=== PATIENT | male | born 1995 | race Asian ===

== ENCOUNTER 2018-03-28 08:39 | Emergency (ER) | payer OTHER ==
[~2018-03-28] VITALS: Ht 170.2 cm; Wt 58.2 kg
[2018-03-28] MEDS ORDERED: BACITRACIN 0.9 GM PACKET OINTMENT TP ONE (12:15)
[2018-03-28] MEDS ORDERED: LIDOCAINE/PF 1% 5 ML VIAL INJ ONE (12:15)
[2018-03-28] MEDS ORDERED: PERTUSS(ACELL),DIPH,TET VAC/PF 0.5 ML VIAL IM ONE (12:15)
[2018-03-28 13:43] VITALS: BP 127/72
== END 2018-03-28 13:44 | disposition home or self-care (01) ==
LOC: EMS 08:41
DX: S01.111A Laceration without foreign body of right eyelid and periocular area, initial encounter (principal); W22.8XXA Striking against or struck by other objects, initial encounter; Y93.01 Activity, walking, marching and hiking; Y92.89 Other specified places as the place of occurrence of the external cause; Y99.0 Civilian activity done for income or pay
CPT/HCPCS: 12011; 90471; 90715; 99283; J3490